=== PATIENT | female | born 1980 | race African-American/Black ===

== ENCOUNTER 2018-02-02 22:00 | Emergency (ER) | payer BC, MEDICAID ==
[~2018-02-02] VITALS: Ht 152.4 cm; Wt 78.0 kg
[2018-02-03] MEDS ORDERED: KETOROLAC 30MG/ML VIAL IV STA (01:24)
[2018-02-03] MEDS ORDERED: SODIUM CHLORIDE 0.9% 1,000 ML IV ONE ×2 (01:24→01:30)
[2018-02-03 02:09] LABS: BASOPHILS % 2.3 % (0.0-2.0); EOSINOPHILS % 3.5 % (0.0-5.0); HEMATOCRIT. 27.4 % (36.0-48.0); HEMOGLOBIN. 8.5 g/dL (12.0-16.0); LYMPHOCYTES % 36.4 % (20.0-50.0); MEAN CORPUSCULAR HEMOGLOBIN 22.4 pg (28.0-32.0); MEAN CORPUSCULAR VOLUME 72.4 fL (81.0-99.0); MEAN PLATELET VOLUME 8.9 fl (7.4-10.4); MONOCYTES % 8.4 % (2.0-8.0); NEUTROPHILS % 49.4 % (40.0-76.0); PLATELET 301 x1000/uL (130-400); RED BLOOD CELL COUNT 3.79 mill/uL (4.2-5.4); RED CELL DISTRIBUTION WIDTH 16.7 % (11.6-14.6)
[2018-02-03 02:15] LABS: CHLORIDE 108 mEq/L (98-107)
[2018-02-03 02:20] LABS: CLARITY URINE CLEAR (CLEAR); COLOR URINE YELLOW (YELLOW); KETONES URINE NEGATIVE (NEGATIVE); LEUKOCYTE ESTERASE URINE NEGATIVE (NEGATIVE); NITRITE URINE NEGATIVE (NEGATIVE); OCCULT BLOOD URINE NEGATIVE (NEGATIVE); PROTEIN URINE NEGATIVE (NEGATIVE); SPECIFIC GRAVITY URINE 1.024 (1.005-1.030); UROBILINOGEN URINE 0.2 E.U./dL (0.2-1.0)
[2018-02-03 05:51] VITALS: BP 118/83
== END 2018-02-03 06:00 | disposition home or self-care (01) ==
LOC: ER 22:00
DX: R55 Syncope and collapse (principal); D64.9 Anemia, unspecified; M25.571 Pain in right ankle and joints of right foot; R42 Dizziness and giddiness; M79.632 Pain in left forearm; J45.909 Unspecified asthma, uncomplicated; Z98.890 Other specified postprocedural states
CPT/HCPCS: 36415; 73610; 80048; 81003; 81025; 85025; 93005; 93971; 96361; 96374; 99284; J1885; J7030